=== PATIENT | male | born 1980 | race Caucasian/White ===

== ENCOUNTER 2024-07-24 09:54 | Inpatient (IN) | payer BC ==
[~2024-07-24] VITALS: Ht 177.8 cm; Wt 88.8 kg
[2024-07-24] MEDS ORDERED: CELE20TA PO (10:07)
[2024-07-24] MEDS ORDERED: LATU1TAB PO (10:07)
[2024-07-24] MEDS ORDERED: ADDE10CA3 PO (10:07)
[2024-07-24] MEDS ORDERED: CVS5000S2 PO (10:07)
[2024-07-24] MEDS ORDERED: AMLO25TA PO (10:07)
[2024-07-24 11:05] LABS: HEMATOCRIT 40.9 % (42.0-52.0); HEMOGLOBIN 14.9 g/dl (13.5-17.5); MEAN CORPUSCULAR HEMOGLOBIN 32.1 pg (27.0-33.0); MEAN CORPUSCULAR HGB CONC 36.4 g/dl (32.0-36.5); MEAN CORPUSCULAR VOLUME 88.1 fl (80.0-96.0); PLATELET COUNT, AUTOMATED 343 10^3/uL (150-450); RED BLOOD COUNT 4.64 10^6/uL (4.30-6.10); WHITE BLOOD COUNT 10.2 10^3/uL (4.0-10.0)
[2024-07-24 11:18] LABS: ETHYL ALCOHOL (ETHANOL) < 0.003 % (0.000-0.010)
[2024-07-24 11:20] LABS: ALBUMIN 4.2 G/DL (3.2-5.2); ALKALINE PHOSPHATASE 78 U/L (40-129); ALT/SGPT 34 U/L (7.0-40); AST/SGOT 10 U/L (<34); BILIRUBIN,DIRECT 0.4 MG/DL (<0.4); BLOOD UREA NITROGEN 18 MG/DL (9-23); CALCIUM LEVEL 9.6 MG/DL (8.5-10.1); CARBON DIOXIDE LEVEL 24 MMOL/L (20-31); CHLORIDE LEVEL 105 MMOL/L (98-107); CREATININE FOR GFR 1.02 MG/DL (0.70-1.30); GLOMERULAR FILTRATION RATE > 60.0 (>60); GLUCOSE, FASTING 163 MG/DL (60-100); POTASSIUM SERUM 3.2 MMOL/L (3.5-5.1); SALICYLATE LEVEL < 3.0 MG/DL (<30); SODIUM LEVEL 139 MMOL/L (136-145)
[2024-07-24 11:29] LABS: AMPHETAMINES LEVEL URINE NEGATIVE (NEGATIVE); BARBITURATES URINE NEGATIVE (NEGATIVE); BENZODIAZEPINES URINE NEGATIVE (NEGATIVE); COCAINE METABOLITE URINE NEGATIVE (NEGATIVE); METHADONE URINE NEGATIVE (NEGATIVE); OPIATES URINE NEGATIVE (NEGATIVE); PHENCYCLIDINE URINE NEGATIVE (NEGATIVE)
[2024-07-24 11:44] LABS: CANNABINOIDS URINE POSITIVE (NEGATIVE)
[2024-07-24] MEDS: POTASSIUM CHLORIDE 10MEQ SR TABLET PO ONE (12:20)
[2024-07-24] MEDS ORDERED: ADDE10TA PO (13:30)
[2024-07-24] MEDS ORDERED: AMLO1TAB25 PO (13:30)
[2024-07-24] MEDS ORDERED: HOME MED LIST COMPLETE! XX SCH (13:35)
[2024-07-25 06:11] LABS: BLOOD UREA NITROGEN 13 MG/DL (9-23); CALCIUM LEVEL 8.9 MG/DL (8.5-10.1); CARBON DIOXIDE LEVEL 28 MMOL/L (20-31); CHLORIDE LEVEL 108 MMOL/L (98-107); CREATININE FOR GFR 0.76 MG/DL (0.70-1.30); GLOMERULAR FILTRATION RATE > 60.0 (>60); GLUCOSE, FASTING 93 MG/DL (60-100); POTASSIUM SERUM 3.2 MMOL/L (3.5-5.1); SODIUM LEVEL 140 MMOL/L (136-145)
[2024-07-25] MEDS: POTASSIUM CHLORIDE 10MEQ SR TABLET PO ONE (08:06)
[2024-07-25] MEDS: CitaloPRAM (CeleXA) 20 MG TAB PO SCH (08:06)
[2024-07-25] MEDS: ADDERALL 5 MG TAB PO SCH (08:06)
[2024-07-25] MEDS: ENOXAPARIN 40MG/0.4ML SYRINGE (J1650 PER 10MG) SC SCH (08:06)
[2024-07-25] MEDS: LURASIDONE 20 MG TAB (LATUDA) PO SCH (18:00)
[2024-07-26 08:39] LABS: BLOOD UREA NITROGEN 12 MG/DL (9-23); CALCIUM LEVEL 9.4 MG/DL (8.5-10.1); CARBON DIOXIDE LEVEL 27 MMOL/L (20-31); CHLORIDE LEVEL 109 MMOL/L (98-107); CREATININE FOR GFR 0.81 MG/DL (0.70-1.30); GLOMERULAR FILTRATION RATE > 60.0 (>60); GLUCOSE, FASTING 97 MG/DL (60-100); POTASSIUM SERUM 3.6 MMOL/L (3.5-5.1); SODIUM LEVEL 142 MMOL/L (136-145)
[2024-07-26] MEDS ORDERED: CitaloPRAM (CeleXA) 20 MG TAB PO SCH (09:00)
[2024-07-26] MEDS ORDERED: ACETAMINOPHEN 325 MG TAB PO PRN (09:30)
[2024-07-26] MEDS ORDERED: OLANZapine ORAL DISINTEGRATING TAB 5MG PO PRN (09:30)
[2024-07-26] MEDS ORDERED: NICOTINE 21MG/24HR 1 EA TRANSDERMAL TD PRN (09:30)
[2024-07-26] MEDS ORDERED: IBUPROFEN 400MG TAB PO PRN (09:30)
[2024-07-26] MEDS ORDERED: MAALOX 30 ML SUSP *UDC PO PRN (09:30)
[2024-07-26] MEDS ORDERED: MOM 30ML SUSPENSION UDC PO PRN (09:30)
[2024-07-26 12:25] VITALS: BP 137/65; TEMP 97.9; O2SAT 97
[2024-07-26 14:46] VITALS: BP 131/74; TEMP 98; O2SAT 99
[2024-07-26] MEDS: LURASIDONE 20 MG TAB (LATUDA) PO SCH (17:59)
[2024-07-27 06:07] VITALS: BP 101/57; TEMP 98.2; O2SAT 100
[2024-07-27 06:49] LABS: HEMATOCRIT 36.7 % (42.0-52.0); HEMOGLOBIN 12.7 g/dl (13.5-17.5); MEAN CORPUSCULAR HEMOGLOBIN 31.5 pg (27.0-33.0); MEAN CORPUSCULAR HGB CONC 34.6 g/dl (32.0-36.5); MEAN CORPUSCULAR VOLUME 91.1 fl (80.0-96.0); PLATELET COUNT, AUTOMATED 277 10^3/uL (150-450); RED BLOOD COUNT 4.03 10^6/uL (4.30-6.10)
[2024-07-27] MEDS: ADDERALL 5 MG TAB PO SCH (09:00)
[2024-07-27] MEDS: CitaloPRAM (CeleXA) 20 MG TAB PO SCH (10:20)
[2024-07-27] MEDS: DIVALPROEX 250MG TAB PO SCH (10:52)
[2024-07-27 15:57] VITALS: BP 144/85; TEMP 98.5; O2SAT 100
[2024-07-27] MEDS: diphenhydrAMINE 25MG CAP PO PRN (21:04)
[2024-07-27] MEDS: traZODone 50 MG TAB PO PRN (21:04)
[2024-07-28 06:35] VITALS: BP 108/67; TEMP 97.6; O2SAT 97
[2024-07-28 14:52] VITALS: BP 140/69; TEMP 99; O2SAT 97
[2024-07-29 06:11] VITALS: BP 134/87; TEMP 98.9; O2SAT 98
[2024-07-29 15:25] VITALS: BP 138/79; TEMP 98.8; O2SAT 97
[2024-07-30 06:23] VITALS: BP 140/95; TEMP 97.5; O2SAT 99
[2024-07-30 07:12] LABS: HEMATOCRIT 36.5 % (42.0-52.0); HEMOGLOBIN 12.9 g/dl (13.5-17.5); MEAN CORPUSCULAR HEMOGLOBIN 32.1 pg (27.0-33.0); MEAN CORPUSCULAR HGB CONC 35.3 g/dl (32.0-36.5); MEAN CORPUSCULAR VOLUME 90.8 fl (80.0-96.0); PLATELET COUNT, AUTOMATED 238 10^3/uL (150-450); RED BLOOD COUNT 4.02 10^6/uL (4.30-6.10); WHITE BLOOD COUNT 5.3 10^3/uL (4.0-10.0)
[2024-07-30] MEDS ORDERED: CELE20TA PO (11:51)
[2024-07-30] MEDS ORDERED: TRAZ-252 PO (11:51)
[2024-07-30] MEDS ORDERED: DEPA250T32 PO (11:51)
[2024-07-30] MEDS ORDERED: NICO21PAT TD (11:51)
== END 2024-07-30 14:13 | disposition home or self-care (01) | DRG 753 ==
LOC: M ED 09:54 → EDBEDREQTM 15:09 → EDBEDREQSVC 15:09 → M ED INP 16:15 → OBSVTOIN 07-26 09:29 → M PSY 07-26 11:20
PROVIDERS: ADMIT Student in an Organized Health Care Education/Training Program; ATTEND Psychiatry & Neurology Psychiatry
DX: F31.9 Bipolar disorder, unspecified (principal); F12.90 Cannabis use, unspecified, uncomplicated; F41.9 Anxiety disorder, unspecified; F90.9 Attention-deficit hyperactivity disorder, unspecified type; T46.5X2A Poisoning by other antihypertensive drugs, intentional self-harm, initial encounter; T14.91XA Suicide attempt, initial encounter; E87.6 Hypokalemia; I10 Essential (primary) hypertension; Z79.899 Other long term (current) drug therapy; Z88.2 Allergy status to sulfonamides; Z88.8 Allergy status to other drugs, medicaments and biological substances; Z98.84 Bariatric surgery status; Z90.49 Acquired absence of other specified parts of digestive tract; Z81.1 Family history of alcohol abuse and dependence